=== PATIENT | male | born 1990 | race Caucasian/White ===

== ENCOUNTER 2020-11-18 21:42 | Emergency (ER) | payer OTHER ==
[2020-11-18] MEDS ORDERED: AUGMENTIN 875-1 EACH PO (22:54)
[2020-11-18] MEDS ORDERED: ONDANSETRON ODT4 MG SL (22:54)
[2020-11-18] MEDS ORDERED: NORCO 5-325 TA1 EACH PO (22:54)
== END 2020-11-18 23:05 | disposition home or self-care (01) ==
LOC: FER 21:42
DX: S50.872A Other superficial bite of left forearm, initial encounter (principal); S50.871A Other superficial bite of right forearm, initial encounter; S60.572A Other superficial bite of hand of left hand, initial encounter; S60.571A Other superficial bite of hand of right hand, initial encounter; S60.473A Other superficial bite of left middle finger, initial encounter; S60.475A Other superficial bite of left ring finger, initial encounter; W54.0XXA Bitten by dog, initial encounter; Y92.009 Unspecified place in unspecified non-institutional (private) residence as the place of occurrence of the external cause
CPT/HCPCS: 73090